=== PATIENT | male | born 1935 | race Caucasian/White ===

== ENCOUNTER → 2017-02-14 | Outpatient (CLI) | payer MEDICARE ==
[~2017-02-14] MED LIST: ASPIRIN81 M1 PO; COREG6.25 MG PO; COUMADIN5 M2 PO; COUMADIN7.5 M1 PO; GLUCOPHAGE500 MG PO; GLUCOTROL5 MG PO; HYDROCODONE BIT1 T11 PO; IMDUR30 MG PO; KEFLEX500 M1 PO; LOSARTAN POTASS50 MG PO; MIRALAX POWDER17 G1 PO; NORCO 325 MG-51 TAB PO; PROSCAR5 MG PO; PYRIDIUM200 MG PO; ULTRAM50 MG PO
[2017-02-14 14:37] LABS: INTERNATIONAL NORM RATIO 3.2 (2.0-3.5); PROTHROMBIN TIME 36.8 SECONDS (9.0-12.4)
== END | disposition home or self-care (01) ==
LOC: LAB 13:40
DX: Z79.01 Long term (current) use of anticoagulants (principal)

== ENCOUNTER → 2017-03-18 | Outpatient (CLI) | payer MEDICARE ==
[2017-03-18 10:17] LABS: HEMATOCRIT 38.2 % (42.0-52.0); HEMOGLOBIN 12.9 g/dl (14.0-18.0); MEAN CELL VOLUME 93.6 fl (80.0-94.0); MEAN CORPUSCULAR HGB 31.6 pg (27.0-31.0); MEAN CORPUSCULAR HGB CONC 33.8 g/dl (33.0-37.0); MEAN PLATELET VOLUME 10.9 fl (9.6-12.3); RED BLOOD COUNT 4.08 10*6/uL (4.50-5.90); RED CELL DISTRI WIDTH 13.6 % (0-14.5); WHITE BLOOD COUNT 7.4 10*3/uL (4.8-10.8)
[2017-03-18 10:44] LABS: ALBUMIN 3.9 gm/dl (3.1-4.5); ALKALINE PHOSPHATASE 80 U/L (45-117); BILIRUBIN, TOTAL 0.7 mg/dl (0.2-1.0); BUN 18 mg/dl (7-24); CARBON DIOXIDE 26 mmol/L (21-32); CHLORIDE 104 mmol/L (98-107); CHOLESTEROL 196 mg/dL (<200); CPK 42 U/L (39-308); EST GLOM FILT AFRICAN AMERICAN > 60 ml/min; GLUCOSE 190 mg/dL (65-99); HDL CHOLESTEROL 45 mg/dl (40-60); LDL CHOLESTEROL 92 mg/dL (9-159); POTASSIUM 4.3 mmol/L (3.5-5.1); SGOT/AST 11 IU/L (3-35); SGPT/ALT 14 U/L (12-78); SODIUM 140 mmol/L (136-145); TOTAL PROTEIN 7.2 gm/dL (6.4-8.2); TRIGLYCERIDES 294 mg/dl (<150); VLDL CHOLESTEROL 59 mg/dL (6-40)
== END | disposition home or self-care (01) ==
LOC: LAB 09:56
PROVIDERS: Family Medicine
DX: E11.9 Type 2 diabetes mellitus without complications (principal); I25.10 Atherosclerotic heart disease of native coronary artery without angina pectoris; I10 Essential (primary) hypertension; E55.9 Vitamin D deficiency, unspecified; M19.90 Unspecified osteoarthritis, unspecified site

== ENCOUNTER → 2017-04-05 | Outpatient (CLI) | payer MEDICARE ==
[2017-04-05 10:33] LABS: INTERNATIONAL NORM RATIO 1.9 (2.0-3.5); PROTHROMBIN TIME 21.4 SECONDS (9.0-12.4)
== END | disposition home or self-care (01) ==
LOC: LAB 09:21
PROVIDERS: Family Medicine
DX: I48.91 Unspecified atrial fibrillation (principal); Z79.01 Long term (current) use of anticoagulants

== ENCOUNTER → 2017-04-23 | Outpatient (CLI) | payer MEDICARE ==
[2017-04-23 11:14] LABS: INTERNATIONAL NORM RATIO 2.1 (2.0-3.5); PROTHROMBIN TIME 23.4 SECONDS (9.0-12.4)
== END | disposition home or self-care (01) ==
LOC: LAB 10:08
PROVIDERS: Family Medicine
DX: I48.91 Unspecified atrial fibrillation (principal)

== ENCOUNTER → 2017-06-08 | Outpatient (CLI) | payer MEDICARE ==
[2017-06-08 10:41] LABS: INTERNATIONAL NORM RATIO 2.4 (2.0-3.5); PROTHROMBIN TIME 27.2 SECONDS (9.0-12.4)
== END | disposition home or self-care (01) ==
LOC: LAB 09:36
PROVIDERS: Family Medicine
DX: I48.91 Unspecified atrial fibrillation (principal)

== ENCOUNTER → 2017-08-01 | Outpatient (CLI) | payer MEDICARE ==
[2017-08-01 12:31] LABS: INTERNATIONAL NORM RATIO 1.9 (2.0-3.5)
== END | disposition home or self-care (01) ==
LOC: LAB 11:03
PROVIDERS: Family Medicine
DX: I48.91 Unspecified atrial fibrillation (principal)

== ENCOUNTER → 2017-08-16 | Outpatient (CLI) | payer MEDICARE ==
[2017-08-16 16:15] LABS: HEMATOCRIT 38.2 % (42.0-52.0); HEMOGLOBIN 12.6 g/dl (14.0-18.0); MEAN CELL VOLUME 93.6 fl (80.0-94.0); MEAN CORPUSCULAR HGB 30.9 pg (27.0-31.0); MEAN PLATELET VOLUME 10.6 fl (9.6-12.3); RED BLOOD COUNT 4.08 10*6/uL (4.50-5.90); RED CELL DISTRI WIDTH 13.2 % (0-14.5); WHITE BLOOD COUNT 6.7 10*3/uL (4.8-10.8)
[2017-08-16 16:32] LABS: ALBUMIN 3.6 gm/dl (3.1-4.5); BUN 17 mg/dl (7-24); CHLORIDE 105 mmol/L (98-107); CREATININE 0.93 mg/dL (0.70-1.30); POTASSIUM 4.8 mmol/L (3.5-5.1); SGOT/AST 12 IU/L (3-35); SGPT/ALT 14 U/L (12-78); SODIUM 136 mmol/L (136-145)
[2017-08-16 16:34] LABS: ALKALINE PHOSPHATASE 77 U/L (45-117); CHOLESTEROL 183 mg/dL (<200); HDL CHOLESTEROL 46 mg/dl (40-60); LDL CHOLESTEROL 114 mg/dL (9-159); TOTAL PROTEIN 7.2 gm/dL (6.4-8.2); TRIGLYCERIDES 116 mg/dl (<150); VLDL CHOLESTEROL 23 mg/dL (6-40)
== END | disposition home or self-care (01) ==
LOC: LAB 15:58
PROVIDERS: Family Medicine
DX: E78.00 Pure hypercholesterolemia, unspecified (principal); I10 Essential (primary) hypertension; I25.10 Atherosclerotic heart disease of native coronary artery without angina pectoris; E11.9 Type 2 diabetes mellitus without complications

== ENCOUNTER → 2017-09-02 | Outpatient (CLI) | payer MEDICARE ==
[2017-09-02 15:29] LABS: INTERNATIONAL NORM RATIO 1.8 (2.0-3.5)
== END | disposition home or self-care (01) ==
LOC: LAB 14:23
PROVIDERS: Family Medicine
DX: I48.91 Unspecified atrial fibrillation (principal)

== ENCOUNTER 2017-11-08 13:25 | Emergency (ER) | payer MEDICARE ==
[~2017-11-08] VITALS: Ht 170.1 cm; Wt 74.8 kg
[~2017-11-08 13:25] MED LIST changes: +COZAAR100 MG PO; +IMDUR SA30 MG PO; -IMDUR30 MG PO; -LOSARTAN POTASS50 MG PO
[2017-11-08 13:48] VITALS: BP 121/66
[2017-11-08] MEDS ORDERED: ZOLOFT25 MG PO (13:59)
[2017-11-08] MEDS ORDERED: NORVASC10 MG PO (14:00)
[2017-11-08 14:58] LABS: BASO % 0.4 % (0.0-1.0); EOS # 0.1 10*3/uL (0.0-0.4); EOS % 1.4 % (1.0-4.0); HEMATOCRIT 37.5 % (42.0-52.0); HEMOGLOBIN 12.8 g/dl (14.0-18.0); LYMPH # 2.2 10*3/uL (1.3-4.4); LYMPH % 28.7 % (27.0-41.0); MEAN CELL VOLUME 91.2 fl (80.0-94.0); MEAN CORPUSCULAR HGB 31.1 pg (27.0-31.0); MEAN CORPUSCULAR HGB CONC 34.1 g/dl (33.0-37.0); MEAN PLATELET VOLUME 10.4 fl (9.6-12.3); MONO # 0.5 10*3/uL (0.1-1.0); MONO % 6.7 % (3.0-9.0); NEUT # 4.9 10*3/uL (2.3-7.9); NEUT % 62.4 % (47.0-73.0); PLATELET COUNT AUTOMATED 182 10*3/uL (130-400); RED BLOOD COUNT 4.11 10*6/uL (4.50-5.90); RED CELL DISTRI WIDTH 13.7 % (0-14.5); WHITE BLOOD COUNT 7.8 10*3/uL (4.8-10.8)
[2017-11-08 15:07] LABS: ACT PARTIAL THROMBO TIME 29.9 SECONDS (20.8-31.5); INTERNATIONAL NORM RATIO 1.5 (2.0-3.5)
[2017-11-08 15:14] LABS: ALKALINE PHOSPHATASE 84 U/L (45-117); BUN 21 mg/dl (7-24); CHLORIDE 103 mmol/L (98-107); CREATININE 0.94 mg/dL (0.70-1.30); ETHYL ALCOHOL < 3.0 mg/dl (<3); POTASSIUM 4.2 mmol/L (3.5-5.1); SGOT/AST 13 IU/L (3-35); SGPT/ALT 16 U/L (12-78); SODIUM 136 mmol/L (136-145); TOTAL PROTEIN 7.7 gm/dL (6.4-8.2)
== END 2017-11-09 00:23 | disposition admitted as inpatient to this hospital (09) ==
LOC: ED 13:25 → EDHOLD 14:40 → ED 14:40
PROVIDERS: Emergency Medicine
DX: B35.1 Tinea unguium (principal); F63.81 Intermittent explosive disorder; F03.91 Unspecified dementia, unspecified severity, with behavioral disturbance; I10 Essential (primary) hypertension; Z95.1 Presence of aortocoronary bypass graft; Z95.0 Presence of cardiac pacemaker; Z98.890 Other specified postprocedural states; Z79.899 Other long term (current) drug therapy; Z79.82 Long term (current) use of aspirin; Z79.01 Long term (current) use of anticoagulants; Z88.6 Allergy status to analgesic agent; Z88.8 Allergy status to other drugs, medicaments and biological substances; Z85.46 Personal history of malignant neoplasm of prostate

== ENCOUNTER 2017-11-08 14:43 | Inpatient (IN) | payer MEDICARE ==
[~2017-11-08] VITALS: Ht 170.1 cm; Wt 77.1 kg
--- NOTE | ~2017-11-08 | PR ---
[place], [place] PROGRESS NOTE [id number] UN[facility] #: [id number] ROOM: 315 DOCTOR: EMILY GUTIERREZ,ELIZABETH BIRTHDATE: [birth year] DOS: CHIEF COMPLAINT: "God bless you." SUBJECTIVE: The patient is seen this morning in the half-way sitting in wheelchair. He readily engaged in conversation. He did recognize me from the last week's visit. This morning he has been quiet, talked about his who needs medicines and also that he will need to see the packing machine operator for pacemaker. He has been very labile this morning, states that he did sleep okay last night, had his breakfast this morning and nurses have no new concerns at present. MENTAL STATUS EXAMINATION: The patient is awake, alert, oriented to person, place, approximate to time, very labile this morning. No gregg or hypomania and no overt psychosis. No paranoia or delusions. PLAN: The patient needs further stabilization. We shall continue his care, continue his medicines and keep engaging him in candelario milieu. ELIZABETH DIAZ MD CM:PNTRANS 09 114 ELIZABETH DIAZ MD 11/16/17 1141 interface
--- NOTE | ~2017-11-08 | WRIGHTHP ---
[place], [place] PATIENT HISTORY AND PHYSICAL EXAM NAME: FAHAD HARDWICK UNIT #: [id number] ROOM: 317 DOCTOR: EMILY GUTIERREZELIZABTEH BIRTHDATE: [birth year] DOS: 11/08/2017 INITIAL ADMISSION NOTE CHIEF COMPLAINT: "I need to see the foot doctor." HISTORY OF PRESENT ILLNESS: The patient is an 82 years old male, , 3 children, lives with his second , has history of depression and anxiety and has been on antidepressants in the past, then he has not been seeing his psychiatrist for a while and has not been taking any medicines and has been feeling depressed, getting sad easy and endorses some neurovegetative symptoms of depression with low energy, avolition, but no hopelessness and no suicidal thoughts. He states that he is getting irritable and agitated easy and he lashes out at times. Now, he came to the ER because of his foot injury and in the ER he got angry and became loud and that led to this admission to rule out any organic causes of his anger outburst. Today, he is in a pleasant mood, admits to some difficulty in his memory at times. He did remember the incident which led to this admission and now feels bad about getting angry and having this outburst. Denies any manic or psychotic symptoms. PAST PSYCHIATRIC HISTORY: History of depression. PAST MEDICAL HISTORY: Coronary artery disease, diabetes, history of cardiac pacemaker, AFib, hypertension. FAMILY HISTORY: Nothing relevant. SUBSTANCE ABUSE: No alcohol or drugs. MENTAL STATUS EXAMINATION: The patient is awake, alert, oriented to person, place, approximate to time. Fair eye contact. Engaged in conversation. He could recall the events which led to this admission, some lability of mood. No gregg or hypomania. No evidence of psychosis at present. Short term memory has some gaps. ASSESSMENT: Intermittent explosive disorder; major depression, recurrent. PLAN: The patient is started on Exelon and Depakote. We shall add Zoloft 50 mg to help his mood and shall check Depakote level in the morning and try and engage him in candelario milieu as he is more stable. [place], [place] PATIENT HISTORY AND PHYSICAL EXAM NAME: FAHAD HARDWICK UNIT #: [id number] ROOM: [facility] DOCTOR: ELIZABETH DIAZ MD BIRTHDATE: [birth year] ELIZABETH DIAZ MD CM:PHYS:PATIENT HISTORY AND PHYSICAL EXAMINATION [id number] ELIZABETH DIAZ MD 11/09/17 1514 interface
--- NOTE | ~2017-11-08 | PR ---
[place], [place] PROGRESS NOTE [id number] UN[facility] #: [id number] ROOM: 315 DOCTOR: FREDIS WOODS MD BIRTHDATE: [birth year] DOS: 11/15/2017 CHIEF COMPLAINT: "Oh doctor I pray to God, you can get me out of here. I want to be close to my . Please sir, help me get out of here." SUMMARY OF THE VISIT: The patient was interviewed as he sat quietly in the dining area. He engaged readily in conversation. He did express his frustration for his continued stay here and is anxious to be able to go to as he puts it the step down unit that is in [place]. He reports that this facility is much closer to his who herself suffers from multiple physical abnormalities and has a hard time traveling. He is hopeful that he will be able to be discharged today or at least prior to [place], so that the two of them can at least share some time together. Despite the frustration, he has remained in control of himself and he has not lashed out verbally or physically at anyone. He does seem to be tolerating the current medication regimen well and there is no sedation, somnolence, or any other type of side effects. MENTAL STATUS: He is alert and oriented to person, place, but not time. Mood does seem to be trending towards euthymia. Affect is more appropriate. There is no gregg or hypomania. There are no overt auditory or visual hallucinations. No delusions, no paranoia. He does have poor short term memory. PLAN: I will maximize the dose of Namenda, bringing the dose to 10 mg b.i.d. to augment the Exelon. We will continue to engage in individual and candelario milieu activity. We are awaiting the and once this is complete, we can then successfully discharge him to a local long-term care facility. FREDIS WOODS MD CM:PNTRANS 3 9 FREDIS WOODS MD 11/15/17939 interface
--- NOTE | ~2017-11-08 | DS ---
[place], [place] DISCHARGE SUMMARY NAME: FAHAD HARDWICK [facility] #: [id number] UNIT #: [id number] ROOM: 315 DOCTOR: FREDIS WOODS MD BIRTHDATE: [birth year] DOS: 11/19/2017 CHIEF COMPLAINT: "I need to see the foot doctor." HISTORY OF PRESENT ILLNESS: This is an 82-year-old white male who initially presented to the Emergency Room at [facility] with a chief complaint that he had injured his toe and was fearful that he would bleed to . As he was about ready to be discharged, the patient got into a very volatile argument with his and made multiple threats. The did discuss the case further with the Emergency Room doctor saying that his behavior has become so problematic at home, she is fearful of her safety because he has not only been verbally aggressive, but also physically aggressive. He was admitted to the U at this point in time to rule out organic factors, to stabilize on medication and to determine the most appropriate placement. SUMMARY OF HOSPITAL COURSE: The patient was admitted to the unit where he had his low dose Zoloft discontinued due to ineffectiveness. He was started simultaneously on both Exelon patch and Namenda to improve and impact positively on ADLs, behavior and cognition. Additionally, because his mood lability seemed to be the most problematic issue, he was started on Depakote 250 mg 3 times daily. The dose was later increased to 250 twice daily and 500 mg at bedtime with good results. The patient tolerated the gradual titration of the Exelon to its maximum while in the hospital to 9.5 mg daily and the Namenda to 10 mg twice daily. The patient improved dramatically. He became much less volatile and was able to be able to be easily redirected verbally. It was decided that long-term placement was the safest both for he and his and a PASSAR was obtained and he was then admitted to [facility] in [place], [place]. MENTAL STATUS AT DISCHARGE: The patient is alert and oriented to person, place, but not time. Mood does still seem to be labile, but is significantly improved than upon admission. There is no hypomania or gregg. There are no auditory or visual hallucinations. No delusions, no paranoia. Short term memory is exceedingly poor. FINAL DIAGNOSES: Impulse control disorder, not otherwise specified and Alzheimer's dementia. PLAN: All of his prescriptions have been printed and will be sent with him to [facility]. I will follow him upon his admission there. [place], [place] DISCHARGE SUMMARY NAME: FAHAD HARDWICK UNIT #: [id number] ROOM: [facility] DOCTOR: FREDIS WOODS MD BIRTHDATE: [birth year] FREDIS WOODS MD CM:DISCHARG [phone] FREDIS WOODS MD 11/19/17 1136 interface
--- NOTE | ~2017-11-08 | PR ---
[place], [place] PROGRESS NOTE NAME: FAHAD HARDWICK [facility] #: [id number] UNIT #: [id number] ROOM: 315 DOCTOR: JAMES HARO,MY BIRTHDATE: [birth year] DOS: 11/14/2017 ROOM NUMBER: [id number]. 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 Unfortunately, "all my buddies are now due to cocaine and alcohol." Said, he will "kick his out my apartment," the nurse told me that she is back in my apartment now, but "I don't want to." States he slept straight 8 hours last night and has no complaints today. Denies suicidal thoughts or other complaints. The patient was seen walking up and down the hallway talking to himself. MENTAL STATUS: The patient is alert and oriented to person, place, and time. Speech was pressured and grandiose. No evidence of visual hallucinations or paranoia noted. For the most part, memory is somewhat intact. PLAN: We will increase p.o. Abilify to 30 mg at bedtime, the patient is to have Aristada 88 mg IM on 12/05/2017 for psychosis and depression. We will continue to engage the patient in individual and group activity with the ultimate plan is to be discharged when he is psychiatrically stable. MY RAMIREZ, DO FREDIS WOODS MD CM:JALEESA 1142 1346 MY RAMIREZ DO 11/19/17 0737 interface
--- NOTE | ~2017-11-08 | PR ---
[place], [place] PROGRESS NOTE NAME: [facility] [id number] UNIT #: [id number] ROOM: 315 DOCTOR: JAMES HARO,MY BIRTHDATE: [birth year] DOS: 11/13/2017 ROOM NUMBER: [id number]. CHIEF COMPLAINT: "If I am able, I am 3ft above rising. I just want to see my ." SUMMARY OF THE VISIT: The patient was interviewed in the hallway as he sat in the wheelchair. States he wants to go home today and "I just want see my ." The patient was tearful when talking about his and her medical condition. He is afraid that she might not be able to make it; therefore, he needs to be with her now. Said he has not heard anything from her yet. The patient denies harm to himself or others. MENTAL STATUS: He is alert and oriented to person and place, but not time. At times, the patient is emotional and agitated; however, the patient is pleasantly confused at all the times. Affect is appropriate. There are no symptoms of gregg or hypomania noted. There are no overt paranoia or auditory or visual hallucination. Short-term memory is poor. PLAN: Continue Depakote and Exelon patch, increase Namenda 5 mg b.i.d. today. We will continue to engage the patient in individual and candelario milieu activity with the plan is to discharge when he is psychiatrically stable. MY JAMES, DO FREDIS WOODS MD CM:PNDEANGELO 1117 1240 TIFF RAMIREZ DO 11/15/17 0723 interface
--- NOTE | ~2017-11-08 | CON ---
[place], [place] REPORT OF CONSULTATION NAME: FAHAD HARDWICK [facility] #: [id number] UNIT #: [id number] ROOM: 317 DOCTOR: RAS YOUNGBLOOD ED.D (TONY) BIRTHDATE: [birth year] DOS: 11/11/2017 HISTORY OF PRESENT ILLNESS: The patient is an 82-year-old male referred by Dr. Woods for competency evaluation. At the present time, this patient is on the [facility] at [facility]. He is and his was present during the interview. He does have 3 children. His family physician is Dr. Marx and his medical history is pertinent for depression, coronary artery disease, diabetes mellitus, atrial fibrillation with pacemaker, hypertension and major neurocognitive disorder -- Alzheimer disease. His medications include Exelon, Depakote, Zoloft, glipizide, amlodipine, aspirin, losartan and metformin. This patient uses no alcoholic beverages or tobacco related products. He was awake, alert and oriented to person, but was not oriented to time or place. He indicated that he is 54 years old and he is 82. He also had no idea what the year was. He was clearly not competent to make informed healthcare decisions. He did not appear to be having any active hallucinations or delusional thoughts, only memory deficits of short and long-term memory. He could converse fairly well for brief period of time, but his short-term memory was extremely poor. RECOMMENDATIONS: In my opinion, this patient needs an emergency guardianship due to the fact that no one is able to make decisions for him and his financial records are all ____ even though he is . His was attempting to get their financial affairs organized, but is unable to do so. He also is unable to make informed decisions at this time and since he is on the [facility], he needs a guardian to make his decisions for him. He has no power of prosecuting attorney. DIAGNOSIS: Major neurocognitive disorder --Alzheimer disease. RECOMMENDATIONS: In my opinion, this patient needs a guardian and papers were sent to Dr. Woods for completion for emergency guardianship. Thank you very much for this consult. RAS YOUNGBLOOD ED.D CM:CONSTR:REPORT OF CONSULTATION 1509 11/11/17 1656 interface FREDIS WOODS MD
--- NOTE | ~2017-11-08 | PR ---
[place], [place] PROGRESS NOTE [id number] UN[facility] #: [id number] ROOM: 315 DOCTOR: EMILY GUTIERREZ,ELIZABETH BIRTHDATE: [birth year] DOS: CHIEF COMPLAINT: "Good morning." SUBJECTIVE: The patient is seen this morning in dining area and later in the hallway. He readily engaged in conversation, seems in a better mood this morning, stated that he is doing fine today, mood has been okay. He did sleep okay last night. He has been coming out and socializing a bit more. He has been taking his medicines and he has been redirectable. MENTAL STATUS EXAMINATION: The patient is alert, awake, oriented to person, place and time approximate. Fair eye contact. He is still labile at times and mood changes rapidly. No symptoms suggestive of gregg or hypomania. No overt psychosis. PLAN: The patient is doing better, so we shall continue his current medicines and continue his care, also keep engaging him in candelario milieu. ELIZABETH DIAZ MD CM:PNTRANS 7 ELIZABETH DIAZ MD 11/18/17937 interface
--- NOTE | ~2017-11-08 | PR ---
[place], [place] PROGRESS NOTE NAME: FAHAD HARDWICK [facility] #: [id number] UNIT #: [id number] ROOM: 317 DOCTOR: JAMES HARO,MY BIRTHDATE: [birth year] DOS: 11/12/2017 ROOM NUMBER: [id number]. CHIEF COMPLAINT: "I say this in complete honesty if the Lord came here today and see my foot, he will let me go home." SUMMARY OF THE VISIT: The patient was interviewed as he sat in his wheelchair in the dining area, states he wants to go home today and "my greatest desire is to have my to go home before me." So, "I can go home and take care of her." He said, "I lost track of time. I think I am closer to 56 and my is 57, 1 year older than I am." He voices no concerns or complaints today. He does remain episodically confused, but is more stable as far as mood lability. MENTAL STATUS: He is alert and oriented to person and place, but not time. Mood trends towards euthymia. Affect is appropriate. There are no symptoms of gregg or hypomania noted. There are no overt auditory or visual hallucinations. No paranoia. Short-term memory is poor. PLAN: Continue Depakote and Exelon patch. Will also add Namenda 5 mg daily today. We will continue to engage the patient in individual and candelario milieu activity with the plan is to discharge the patient when he is psychiatrically stable. MY JAMES, DO FREDIS WOODS MD CM:JALEESA [phone] MY JAMES DO 11/13/17 0836 interface
--- NOTE | ~2017-11-08 | PR ---
[place], [place] PROGRESS NOTE [id number] #: [id number] ROOM: 315 DOCTOR: EMILY GUTIERREZ,ELIZABETH BIRTHDATE: [birth year] DOS: CHIEF COMPLAINT: "Good morning." SUBJECTIVE: The patient is seen this morning, sitting in dining area in wheelchair. He readily engaged in conversation, stating that he is feeling better. He did sleep okay last night, had his meals, likes the food here. He has been taking his medicines. He had a visit from his family yesterday and that went well. he has no other concerns at present and he thanked me for taking care of him. MENTAL STATUS EXAMINATION: The patient is awake, alert, oriented to person, place, approximate to time. Fair eye contact. He is still very labile and emotional. No gregg or hypomania. No overt psychosis at present. PLAN: The patient is getting better, though still very labile and emotional, needs further stabilization, so we shall continue his care and keep engaging him in candelario milieu. ELIZABETH DIAZ MD CM:PNTRANS [phone] ELIZABETH DIAZ MD 11/17/17 1312 interface
--- NOTE | ~2017-11-08 | PR ---
[place], [place] PROGRESS NOTE NAME: FAHDA HARDWICK [facility] #: [id number] UNIT #: [id number] ROOM: 317 DOCTOR: DARNELL BANDA DPM BIRTHDATE: [birth year] DOS: 11/12/2017 SUBJECTIVE: The patient presents for thickened, elongated painful nails of both lower extremities. OBJECTIVE: Pedal pulses diminished bilateral, decreased hair growth, nail thickening, pigmentary discoloration, mild edema bilateral. Decreased skin temperature. Decreased epicritic sensations pigmentary discoloration, crumbly thickened yellow nails 1 through 5 bilateral causing discomfort. ASSESSMENT: Diabetes with peripheral vascular disease, onychomycosis. PLAN: Debrided nails 1 through 5 bilateral foot and the patient can be seen for continued care and followup. DARNELL BANDA DPM CM:JALEESA 1231 1252 DARNELL BANDA DPM 11/12/17 1326 interface
--- NOTE | ~2017-11-08 | CON ---
[place], [place] REPORT OF CONSULTATION NAME: FAHAD HARDWICK [facility] #: [id number] UNIT #: [id number] ROOM: 317 DOCTOR: ZAINAB BERGERON DPM BIRTHDATE: [birth year] DOS: 11/11/2017 ROOM: 317, bed 1. SUBJECTIVE: This patient is seen as consulted for evaluation of his right great toe. The patient states he was cutting his toenails and he did trim the right great toenail a little more than he should and it did bleed. He is on Coumadin and states that it bled quite a bit. He was admitted to the third floor here just a few days ago. He admits to being diabetic, but does not take insulin. PAST MEDICAL HISTORY: Positive for coronary artery disease, diabetes, history of pacemaker, atrial fibrillation, hypertension. ALLERGIES: HYDROCORTISONE and PROMETHAZINE. MEDICATIONS: Include Exelon, Zoloft, Glucotrol, Coumadin, Cozaar, Imdur, Norvasc, Depakote, Coreg, Geodon, Ativan. OBJECTIVE: On lower extremity physical examination, DP and PT pedal pulses are barely palpable. There is decreased hair growth. Mild dependent edema is seen bilaterally with pigment changes. CFT is 2 seconds to all digits. Skin temperature is cool to toes. Sensation appears mildly decreased and symmetrical bilaterally. No paresthesias are seen. No signs of muscle atrophy. Stiffness noted with range of motion. Muscle strength does appear full without any deficits. The right great toenail has been mostly debrided off. There is small portion of the nail present. There is some eschar noted and dry blood from previous trauma when he cut his toenails, but nothing is open. No signs of infection. No active bleeding or drainage. No edema or erythema about the toe. No pain noted to palpation. Other nails are very thick and mycotic. No open areas are seen. ASSESSMENT: Diabetes mellitus and traumatic onycholysis, right great toenail. PLAN: Consult was performed. I discussed with him that the right great toe is healed. I would not recommend removal of the toenail, especially because he is on Coumadin. The nail will grow out over the next 4-6 months. We can come back tomorrow and trim his toenails and smooth that toenail down but right now, I would not recommend any procedure on the toe. There is no open area or active signs of infection. Discussed with him about proper diabetic foot care, possible palliative care every few months in the office because he is diabetic. Thank for the opportunity to take part in care of this patient. [place], [place] REPORT OF CONSULTATION NAME: FAHAD HARDWICK UNIT #: [id number] ROOM: 317 DOCTOR: ZAINAB BERGERON DPM BIRTHDATE: [birth year] ZAINAB BERGERON DPM CM:CONSTR:REPORT OF CONSULTATION 1206 11/11/17 1228 interface
--- NOTE | ~2017-11-08 | PR ---
[place], [place] PROGRESS NOTE NAME: [facility] [id number] UN[facility] #: [id number] ROOM: 317 DOCTOR: EMILY GUTIERREZ,ELIZABETH BIRTHDATE: [birth year] DOS: CHIEF COMPLAINT: "I am good." SUBJECTIVE: The patient is seen this morning in dining area and later in his room. He readily engaged in conversation with a smile and thanked everybody for what they do here. He reports he has been feeling better, mood has improved, did sleep last night, had his breakfast., likes the food here. He had no incident of anger outbursts since admission here. He has been coming to the dining area and socializing. MENTAL STATUS EXAMINATION: The patient is alert, awake, oriented to person, place and approximate to time. He readily engaged in conversation. Fair eye contact. Mood trending towards euthymia. Affect brighter. No gregg or hypomania and no evidence of psychosis at present. Short term memory has some gaps. PLAN: The patient is showing improvement, so we shall continue with the same medicines and shall keep engaging him in candelario milieu. ELIZABETH DIAZ MD CM:PNDEANGELO 5 42 ELIZABETH DIAZ MD 11/10/17 104 interface
--- NOTE | ~2017-11-08 | PR ---
[place], [place] PROGRESS NOTE NAME: FAHAD HARDWICK [facility] #: [id number] UNIT #: [id number] ROOM: 315 DOCTOR: JAMES HARO,MY BIRTHDATE: [birth year] DOS: 11/14/2017 ROOM NUMBER: [id number] CHIEF COMPLAINT: "I am released, could you confirm it with the nurse." SUMMARY OF THE VISIT: Patient was interviewed in the hallway as he sat in the wheelchair, states he just wants to go home to see his . Said she had 3 heart attacks and "I had 4 heart attacks," therefore I need to be there to take care of her. At another time, he said his could drive here and can come in to visit him. When informed that we are working on discharging him to [place] so he can be closer to his , patient smiled and said "I appreciate it, you are doing a good job getting me closer." Today, patient denies suicidal thoughts or any other complaints. MENTAL STATUS: Patient is alert and oriented to person and place, but not time. Patient is pleasantly confused, his only concern today is to be discharged home, so he can take care of his . There are no symptoms of gregg or hypomania. There are no overt auditory or visual hallucinations or paranoia noted. Short-term memory is extremely poor. PLAN: We will continue Depakote and Exelon patch, increase Namenda to 10 mg q.a.m. and 5 mg at bedtime today. We will continue to engage the patient in individual and candelario milieu activity with the plan is to discharge to a less restrictive environment when psychiatrically stable. MY RAMIREZ, DO FREDIS WOODS MD CM:PNTRANS 1149 2307 MY RAMIREZ DO 11/19/17 0738 interface
--- NOTE | ~2017-11-08 | PR ---
[place], [place] PROGRESS NOTE NAME[id number] UN[facility] #: [id number] ROOM: 317 DOCTOR: FREDIS WOODS MD BIRTHDATE: [birth year] DOS: 11/11/2017 INTERVAL NOTE. CHIEF COMPLAINT: "I don't mean to imply that you're ignorant, but you know Coumadin thins your blood." SUMMARY OF THE VISIT: The patient was interviewed in the dining area. He was sitting next to a male peer and interjected himself as I was talking to the other patients. As I reapproached him later to engage in conversation, he was bright, pleasant and conversant. He reported no issues and stated that his major concern is his toe. He does remain episodically confused, but more stable as far as mood lability. MENTAL STATUS: He is alert and oriented to person, place, but not necessarily time. Mood seems to be trending towards euthymia. Affect is more appropriate. There are no symptoms of gregg or hypomania. There are no overt auditory or visual hallucinations. No delusions, no paranoia. Short term memory is poor. PLAN: I will go ahead and increase Exelon patch from 4.6 to 9.5 mg daily attempting to maximize potential benefits. I will discontinue Zoloft as the dose is rather subtherapeutic and it can increase bleeding issues. I do not see him as depressed, but rather more with mood lability. His valproic acid level was already therapeutic at 72.1, so I will maintain the current level of Depakote. Engage in individual and candelario milieu activity with the plan to discharge to the least restrictive environment when psychiatrically stable. FREDIS WOODS MD CM:PNTRANS [id number] FREDIS WOODS MD 11/11/17 1123 interface
[~2017-11-08 14:43] MED LIST changes: +NORVASC10 MG PO; +ZOLOFT25 MG PO
[2017-11-08 16:34] VITALS: BP 153/66
[2017-11-08 17:09] LABS: BILIRUBIN NEGATIVE (NEGATIVE); BLOOD NEGATIVE (NEGATIVE); CLARITY CLEAR (CLEAR); COLOR YELLOW (YELLOW); GLUCOSE NEGATIVE (NEGATIVE); KETONE NEGATIVE (NEGATIVE); LEUKO ESTERASE NEGATIVE (NEGATIVE); NITRITE NEGATIVE (NEGATIVE); SPECIFIC GRAVITY 1.015 (1.005-1.030); UROBILINOGEN 0.2 E.U./dl (0.2-1.0)
[2017-11-08 17:15] LABS: URINE AMPHETAMINES < 1000 (1000ng/ml); URINE BARBITURATES < 200 (200ng/ml); URINE BENZODIAZEPINES < 200 (200ng/ml); URINE CANNABINOIDS (THC) < 50 (50ng/ml); URINE COCAINE < 300 (300ng/ml); URINE METHADONE < 300 (300ng/ml); URINE OPIATES < 300 (300ng/ml)
[2017-11-08 17:17] LABS: URINE PHENCYCLIDINE < 25 (25ng/ml)
[2017-11-08 17:19] LABS: BACTERIA TRACE; EPITHELIAL CELLS 0-2; RBC 0-2 rbc/hpf (0-2); WBC 0-2 wbc/hpf (0-5)
[2017-11-08 18:08] VITALS: BP 153/66
[2017-11-08 20:00] VITALS: BP 144/72
[2017-11-09 06:53] LABS: BASO # 0.1 10*3/uL (0.0-0.1); BASO % 0.7 % (0.0-1.0); EOS # 0.1 10*3/uL (0.0-0.4); EOS % 1.3 % (1.0-4.0); HEMATOCRIT 41.8 % (42.0-52.0); HEMOGLOBIN 13.9 g/dl (14.0-18.0); LYMPH # 1.7 10*3/uL (1.3-4.4); LYMPH % 24.8 % (27.0-41.0); MEAN CELL VOLUME 92.7 fl (80.0-94.0); MEAN CORPUSCULAR HGB 30.8 pg (27.0-31.0); MEAN CORPUSCULAR HGB CONC 33.3 g/dl (33.0-37.0); MEAN PLATELET VOLUME 10.6 fl (9.6-12.3); MONO # 0.4 10*3/uL (0.1-1.0); MONO % 6.3 % (3.0-9.0); NEUT # 4.7 10*3/uL (2.3-7.9); NEUT % 66.6 % (47.0-73.0); PLATELET COUNT AUTOMATED 190 10*3/uL (130-400); RED BLOOD COUNT 4.51 10*6/uL (4.50-5.90); RED CELL DISTRI WIDTH 13.6 % (0-14.5)
[2017-11-09 07:27] LABS: CHLORIDE 101 mmol/L (98-107); POTASSIUM 4.1 mmol/L (3.5-5.1); SODIUM 137 mmol/L (136-145)
[2017-11-09 07:40] LABS: INTERNATIONAL NORM RATIO 1.5 (2.0-3.5)
[2017-11-09 07:44] LABS: ALBUMIN 3.8 gm/dl (3.1-4.5); ALKALINE PHOSPHATASE 83 U/L (45-117); BUN 17 mg/dl (7-24); CHOLESTEROL 181 mg/dL (<200); CREATININE 0.89 mg/dL (0.70-1.30); HDL CHOLESTEROL 48 mg/dl (40-60); LDL CHOLESTEROL 106 mg/dL (9-159); SGOT/AST 9 IU/L (3-35); SGPT/ALT 13 U/L (12-78); TOTAL PROTEIN 7.6 gm/dL (6.4-8.2); TRIGLYCERIDES 134 mg/dl (<150); VLDL CHOLESTEROL 27 mg/dL (6-40)
[2017-11-09 08:09] VITALS: BP 125/69
[2017-11-09 08:31] LABS: VITAMIN D, 25-HYDROXY 38.7 ng/mL (30-100)
[2017-11-09 19:58] VITALS: BP 115/60
[2017-11-10 07:53] VITALS: BP 102/68; BP 103/67
[2017-11-10 11:00] VITALS: BP 104/64
[2017-11-10 20:16] VITALS: BP 114/62
[2017-11-11 07:58] VITALS: BP 114/68
[2017-11-11 14:20] LABS: INTERNATIONAL NORM RATIO 2.2 (2.0-3.5)
[2017-11-11 20:00] VITALS: BP 129/71
[2017-11-12 07:53] VITALS: BP 104/67; BP 128/64
[2017-11-12 09:06] LABS: INTERNATIONAL NORM RATIO 2.2 (2.0-3.5)
[2017-11-12 20:30] VITALS: BP 102/62
[2017-11-13 07:50] LABS: INTERNATIONAL NORM RATIO 2.4 (2.0-3.5)
[2017-11-13 07:56] VITALS: BP 115/60
[2017-11-13 20:00] VITALS: BP 108/62
[2017-11-14 06:23] LABS: INTERNATIONAL NORM RATIO 2.9 (2.0-3.5)
[2017-11-14 08:00] VITALS: BP 129/78
[2017-11-14 20:00] VITALS: BP 132/88
[2017-11-15 07:23] LABS: INTERNATIONAL NORM RATIO 3.3 (2.0-3.5)
[2017-11-15 08:15] VITALS: BP 131/58
[2017-11-15 20:00] VITALS: BP 129/85
[2017-11-16 07:15] LABS: INTERNATIONAL NORM RATIO 3.3 (2.0-3.5)
[2017-11-16 08:00] VITALS: BP 137/77
[2017-11-16 20:41] VITALS: BP 137/85
[2017-11-17 05:17] LABS: INTERNATIONAL NORM RATIO 2.8 (2.0-3.5)
[2017-11-17 08:00] VITALS: BP 111/68; BP 129/83
[2017-11-17 08:53] VITALS: BP 108/64
[2017-11-17 20:17] VITALS: BP 129/68
[2017-11-18 06:59] LABS: INTERNATIONAL NORM RATIO 1.8 (2.0-3.5)
[2017-11-18 08:11] VITALS: BP 100/65
[2017-11-18 20:00] VITALS: BP 116/67
[2017-11-19 06:52] LABS: INTERNATIONAL NORM RATIO 1.5 (2.0-3.5)
[2017-11-19 08:25] VITALS: BP 115/69
[2017-11-19] MEDS ORDERED: DIVALPROEX SOD250 MG PO (10:23)
[2017-11-19] MEDS ORDERED: DIVALPROEX SOD500 MG PO (10:23)
[2017-11-19] MEDS ORDERED: RIVASTIGMINE1 EAC1 T (10:23)
[2017-11-19] MEDS ORDERED: MEMANTINE HCL10 MG PO (10:23)
== END 2017-11-19 18:45 | disposition other institution (70) | DRG 883 ==
LOC: 3N 14:43 → EDHOLD 14:43 → 3N 15:23
PROVIDERS: Family Medicine; Internal Medicine; Psychiatry & Neurology Psychiatry; Registered Nurse
PROC: 0HBRXZZ Excision of Toe Nail, External Approach (ICD-10-PCS; principal; 2017-11-12)
DX: F63.81 Intermittent explosive disorder (principal); E11.51 Type 2 diabetes mellitus with diabetic peripheral angiopathy without gangrene; F33.9 Major depressive disorder, recurrent, unspecified; D64.9 Anemia, unspecified; I48.2 Chronic atrial fibrillation; B35.1 Tinea unguium; G30.9 Alzheimer's disease, unspecified; F01.51 Vascular dementia, unspecified severity, with behavioral disturbance; E78.5 Hyperlipidemia, unspecified; F02.81 Dementia in other diseases classified elsewhere, unspecified severity, with behavioral disturbance; F41.9 Anxiety disorder, unspecified; I10 Essential (primary) hypertension; R79.1 Abnormal coagulation profile; L60.1 Onycholysis; I25.10 Atherosclerotic heart disease of native coronary artery without angina pectoris; Z95.0 Presence of cardiac pacemaker; Z79.899 Other long term (current) drug therapy; Z79.84 Long term (current) use of oral hypoglycemic drugs; Z88.8 Allergy status to other drugs, medicaments and biological substances; Z79.01 Long term (current) use of anticoagulants; Z95.5 Presence of coronary angioplasty implant and graft; Z79.82 Long term (current) use of aspirin

== ENCOUNTER → 2018-01-17 | Outpatient (CLI) | payer MEDICARE ==
[~2018-01-17] MED LIST changes: +DIVALPROEX SOD250 MG PO; +DIVALPROEX SOD500 MG PO; +MEMANTINE HCL10 MG PO; +RIVASTIGMINE1 EAC1 T
[2018-01-17 13:39] LABS: INTERNATIONAL NORM RATIO 1.6 (2.0-3.5)
== END | disposition home or self-care (01) ==
LOC: LAB 12:34
PROVIDERS: Family Medicine
DX: I48.91 Unspecified atrial fibrillation (principal)

== ENCOUNTER → 2018-03-07 | Outpatient (CLI) | payer MEDICARE ==
[2018-03-07 12:25] LABS: HEMATOCRIT 37.2 % (42.0-52.0); HEMOGLOBIN 12.1 g/dl (14.0-18.0); MEAN CELL VOLUME 92.8 fl (80.0-94.0); MEAN CORPUSCULAR HGB 30.2 pg (27.0-31.0); MEAN CORPUSCULAR HGB CONC 32.5 g/dl (33.0-37.0); MEAN PLATELET VOLUME 11.1 fl (9.6-12.3); RED BLOOD COUNT 4.01 10*6/uL (4.50-5.90); RED CELL DISTRI WIDTH 13.8 % (0-14.5); WHITE BLOOD COUNT 6.8 10*3/uL (4.8-10.8)
[2018-03-07 12:43] LABS: ALBUMIN 3.7 gm/dl (3.1-4.5); ALKALINE PHOSPHATASE 71 U/L (45-117); BUN 19 mg/dl (7-24); CHLORIDE 104 mmol/L (98-107); CHOLESTEROL 193 mg/dL (<200); CREATININE 0.91 mg/dL (0.70-1.30); HDL CHOLESTEROL 37 mg/dl (40-60); LDL CHOLESTEROL 105 mg/dL (9-159); POTASSIUM 4.4 mmol/L (3.5-5.1); SGOT/AST 12 IU/L (3-35); SGPT/ALT 14 U/L (12-78); SODIUM 139 mmol/L (136-145); TRIGLYCERIDES 257 mg/dl (<150); VLDL CHOLESTEROL 51 mg/dL (6-40)
== END | disposition home or self-care (01) ==
LOC: LAB 11:43
PROVIDERS: Family Medicine
DX: E11.9 Type 2 diabetes mellitus without complications (principal); I10 Essential (primary) hypertension; E78.00 Pure hypercholesterolemia, unspecified; E55.9 Vitamin D deficiency, unspecified; N40.0 Benign prostatic hyperplasia without lower urinary tract symptoms

== ENCOUNTER 2018-04-24 11:49 | Emergency (ER) | payer MEDICARE ==
[~2018-04-24] VITALS: Ht 170.1 cm; Wt 64.4 kg
[2018-04-24 11:50] VITALS: BP 118/58
== END 2018-04-24 14:14 | disposition home or self-care (01) ==
LOC: ED 11:49
DX: S40.011A Contusion of right shoulder, initial encounter (principal); I48.91 Unspecified atrial fibrillation; I25.10 Atherosclerotic heart disease of native coronary artery without angina pectoris; E11.9 Type 2 diabetes mellitus without complications; E78.5 Hyperlipidemia, unspecified; I10 Essential (primary) hypertension; Z88.8 Allergy status to other drugs, medicaments and biological substances; Z79.899 Other long term (current) drug therapy; Z79.82 Long term (current) use of aspirin; Z79.02 Long term (current) use of antithrombotics/antiplatelets

== ENCOUNTER 2018-06-05 19:04 | Emergency (ER) | payer MEDICARE ==
[~2018-06-05] VITALS: Wt 66.7 kg
[2018-06-05 20:36] VITALS: BP 123/85
[2018-06-05] MEDS ORDERED: AMOXICILLIN500 M2 PO (21:10)
== END 2018-06-05 21:23 | disposition home or self-care (01) ==
LOC: ED 19:04
DX: J01.90 Acute sinusitis, unspecified (principal); R51 Headache; Z95.0 Presence of cardiac pacemaker; Z95.5 Presence of coronary angioplasty implant and graft; Z98.890 Other specified postprocedural states; Z79.01 Long term (current) use of anticoagulants; Z79.82 Long term (current) use of aspirin; Z88.6 Allergy status to analgesic agent; Z88.8 Allergy status to other drugs, medicaments and biological substances

== ENCOUNTER → 2018-09-02 | Outpatient (CLI) | payer MEDICARE ==
[~2018-09-02] MED LIST changes: +AMOXICILLIN500 M2 PO
[2018-09-02 10:46] LABS: HEMATOCRIT 34.8 % (42.0-52.0); MEAN CELL VOLUME 94.1 fl (80.0-94.0); MEAN CORPUSCULAR HGB 29.7 pg (27.0-31.0); MEAN CORPUSCULAR HGB CONC 31.6 g/dl (33.0-37.0); RED BLOOD COUNT 3.7 10*6/uL (4.50-5.90); RED CELL DISTRI WIDTH 13.8 % (0-14.5); WHITE BLOOD COUNT 6.9 10*3/uL (4.8-10.8)
[2018-09-02 11:23] LABS: ALBUMIN 3.6 gm/dl (3.1-4.5); ALKALINE PHOSPHATASE 78 U/L (45-117); BUN 20 mg/dl (7-24); CHLORIDE 106 mmol/L (98-107); CHOLESTEROL 166 mg/dL (<200); CREATININE 0.99 mg/dL (0.70-1.30); HDL CHOLESTEROL 34 mg/dl (40-60); LDL CHOLESTEROL 81 mg/dL (9-159); POTASSIUM 4.9 mmol/L (3.5-5.1); SGOT/AST 12 IU/L (3-35); SGPT/ALT 14 U/L (12-78); SODIUM 139 mmol/L (136-145); TOTAL PROTEIN 7.5 gm/dL (6.4-8.2); TRIGLYCERIDES 254 mg/dl (<150); VLDL CHOLESTEROL 51 mg/dL (6-40)
[2018-09-02 11:50] LABS: VITAMIN D, 25-HYDROXY 31.8 ng/mL (30-100)
== END | disposition home or self-care (01) ==
LOC: LAB 10:16
PROVIDERS: Family Medicine
DX: E78.00 Pure hypercholesterolemia, unspecified (principal); I10 Essential (primary) hypertension; E55.9 Vitamin D deficiency, unspecified; F03.90 Unspecified dementia, unspecified severity, without behavioral disturbance, psychotic disturbance, mood disturbance, and anxiety; R53.83 Other fatigue

== ENCOUNTER → 2018-09-03 | Outpatient (CLI) | payer MEDICARE | END | disposition home or self-care (01) | LOC: CT 09-02 11:19 → MRI 09-02 11:19 → CT 01:07 → MRI 13:00 → CT 14:00 | DX: G31.9 Degenerative disease of nervous system, unspecified (principal); R90.82 White matter disease, unspecified; I10 Essential (primary) hypertension; E55.9 Vitamin D deficiency, unspecified; R53.83 Other fatigue; F03.90 Unspecified dementia, unspecified severity, without behavioral disturbance, psychotic disturbance, mood disturbance, and anxiety ==

== ENCOUNTER 2018-10-03 20:45 | Emergency (ER) | payer MEDICARE ==
[~2018-10-03] VITALS: Ht 182.8 cm; Wt 68.0 kg
--- NOTE | ~2018-10-03 | EKG ---
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
--- NOTE | ~2018-10-03 | EKG ---
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
[2018-10-03 20:56] VITALS: BP 123/74
[2018-10-03 21:13] LABS: BASO % 0.4 % (0.0-1.0); EOS # 0.1 10*3/uL (0.0-0.4); EOS % 0.9 % (1.0-4.0); HEMATOCRIT 28.1 % (42.0-52.0); LYMPH # 1.3 10*3/uL (1.3-4.4); LYMPH % 17.4 % (27.0-41.0); MEAN CELL VOLUME 88.9 fl (80.0-94.0); MEAN CORPUSCULAR HGB 28.5 pg (27.0-31.0); MEAN PLATELET VOLUME 10.2 fl (9.6-12.3); MONO # 0.4 10*3/uL (0.1-1.0); MONO % 5.8 % (3.0-9.0); NEUT # 5.7 10*3/uL (2.3-7.9); PLATELET COUNT AUTOMATED 182 10*3/uL (130-400); RED BLOOD COUNT 3.16 10*6/uL (4.50-5.90); RED CELL DISTRI WIDTH 13.8 % (0-14.5); WHITE BLOOD COUNT 7.6 10*3/uL (4.8-10.8)
[2018-10-03 21:32] LABS: ALBUMIN 3.6 gm/dl (3.1-4.5); ALKALINE PHOSPHATASE 58 U/L (45-117); BUN 18 mg/dl (7-24); CHLORIDE 106 mmol/L (98-107); CREATININE 0.96 mg/dL (0.70-1.30); SGOT/AST 11 IU/L (3-35); SGPT/ALT 11 U/L (12-78); SODIUM 139 mmol/L (136-145); TOTAL PROTEIN 6.8 gm/dL (6.4-8.2)
[2018-10-03 21:33] LABS: ACETAMINOPHEN (TYLENOL) < 5.0 ug/ml (10-30); ACT PARTIAL THROMBO TIME 28.3 SECONDS (20.8-31.5); ETHYL ALCOHOL < 3.0 mg/dl (<3); TROPONIN I < 0.015 ng/ml (<0.045)
[2018-10-03 22:11] VITALS: BP 110/52
[2018-10-04 00:45] VITALS: BP 100/54; BP 101/55; BP 104/71; BP 108/49; BP 112/65; BP 118/49; BP 122/47; BP 123/63; BP 124/54; BP 125/70; BP 127/104
== END 2018-10-04 00:45 | disposition short-term general hospital (02) ==
LOC: ED 20:45 → EDHOLD 23:00 → ED 23:00
PROVIDERS: Student in an Organized Health Care Education/Training Program
DX: I47.2 Ventricular tachycardia (principal); R55 Syncope and collapse; I48.91 Unspecified atrial fibrillation; I25.10 Atherosclerotic heart disease of native coronary artery without angina pectoris; I10 Essential (primary) hypertension; E78.5 Hyperlipidemia, unspecified; E11.9 Type 2 diabetes mellitus without complications; Z95.0 Presence of cardiac pacemaker; Z95.1 Presence of aortocoronary bypass graft; Z88.5 Allergy status to narcotic agent; Z88.8 Allergy status to other drugs, medicaments and biological substances; Z79.84 Long term (current) use of oral hypoglycemic drugs; Z79.82 Long term (current) use of aspirin